=== PATIENT | female | born 1955 | race Caucasian/White ===

== ENCOUNTER → 2023-12-04 11:02 | Outpatient (REF) | payer MEDICARE, OTHER, SELFPAY | LOC: HWRAD 11:02 | PROVIDERS: ATTENDING PHYSICIAN Family Medicine | DX: M85.89 Other specified disorders of bone density and structure, multiple sites (principal); Z12.31 Encounter for screening mammogram for malignant neoplasm of breast | CPT/HCPCS: 77063; 77067; 77080 ==

== ENCOUNTER → 2023-12-05 11:24 | Outpatient (REF) | payer MEDICARE, OTHER, SELFPAY | LOC: RAD 11:24 | PROVIDERS: ATTENDING PHYSICIAN Family Medicine | DX: M79.89 Other specified soft tissue disorders (principal) | CPT/HCPCS: 76536 ==

== ENCOUNTER → 2024-03-11 06:19 | Day surgery (SDC) | payer MEDICARE, OTHER, SELFPAY | LOC: GI 06:19 | PROVIDERS: ATTENDING PHYSICIAN Internal Medicine | DX: Z12.11 Encounter for screening for malignant neoplasm of colon (principal); K22.89 Other specified disease of esophagus; K31.7 Polyp of stomach and duodenum; R12 Heartburn; K63.5 Polyp of colon; K29.70 Gastritis, unspecified, without bleeding | CPT/HCPCS: 45385; 45380; 43239; 88305; 88342 ==

== ENCOUNTER 2024-12-08 20:09 | Inpatient (IN) | payer MEDICARE, OTHER, SELFPAY ==
[2024-12-08] VITALS (9 sets, daily range): BP systolic 102–143; BP diastolic 42–105; BMI 38.6
[2024-12-08 16:57] LABS: Hematocrit 40.3 % (37.0-47.0); Hemoglobin 13.3 g/dL (12.0-16.0); Mean Corp Hgb Conc. 33.0 g/dL (33.0-37.0); Mean Corpuscular Volume 82.4 fL (81.0-99.0); Nucleated Red Blood Cells % 0 %; Platelet Count 269 10^3/uL (130-400); Red Cell Dist. Width 13.2 % (11.5-14.5)
--- NOTE | 2024-12-08 17:09 | ED.GENMED ---
History of Present Illness
<Endy Sebastian PA-C - Last Filed: 12/08/24 19:50>
General
Chief Complaint: Flank Pain
Time Seen by Provider: 12/08/24 16:44
History of Present Illness
History of Present Illness:
69-year-old female presents to the emergency department for evaluation of right flank pain occurring intermittently for the past week. Feels comparable to past kidney stone. States pain was severe 1 week ago, decreased to a dull ache throughout
the course of the week but over the past 2 days has worsened dramatically. Associated with nausea and vomiting. No fever, chills, sweats, lower urinary tract voiding symptoms, or diarrhea. Prior abdominal surgical history includes
cholecystectomy. Past kidney stone did not require surgical removal
Past History
<SERGE Owens Last Filed: 12/08/24 19:50>
Past History
ED Past Medical History: Hypercholesterolemia
ED Past Surgical History: Cholecystectomy
Social History
Tobacco: Non-smoker
Personal:
Living: with family
Review of Systems
<Endy Sebastian PA-C - Last Filed: 12/08/24 19:50>
Review of Systems
Allergies reviewed?: Yes
All Other Systems: ROS reviewed and negative except as documented in HPI and ROS
Phy Exam
<Endy Sebastian PA-C - Last Filed: 12/08/24 19:50>
Physical Exam
Physical Exam:
GEN: Well appearing, NAD, WDWN
HEENT: Oral mucosa moist, no scleral icterus
Cardiac: Regular rate
Lung: No respiratory distress, no tachypnea
MSK: No gross deformity or injuries
Skin: Good color, no pallor or jaundice, no rashes
Neuro: AO x3, moves all extremities freely
Psych: Calm, cooperative
Course
<Endy Sebastian PA-C - Last Filed: 12/08/24 19:50>
Orders/Labs/Results
Orders:
Orders
12/08/24 16:42
Basic Metabolic Panel Urgent
Complete Blood Count/With Diff Urgent
12/08/24 17:19
0.9% Sodium Chloride 1000 ml [Nss] 1,000 ml IV BOLUS
Ketorolac [Toradol] 15 mg IV NOW STA
Ondansetron Injectable [Zofran] 4 mg IV NOW STA
12/08/24 17:20
CT Abd/pel Without Iv Or Oral Urgent
Comment:
Reason For Exam: R flank pain
12/08/24 18:08
HYDROmorphone [Dilaudid] 0.5 mg IV NOW STA
12/08/24 18:27
Urinalysis Reflex To Culture Urgent
Date Specimen was Collected: 12/08/24
Time Specimen was Collected: 16:34
Urine Microscopic Reflex Cult Urgent
Urine Culture Urgent
ZAKIYA Source: U
Specimen Description:
Date Specimen was Collected: 12/08/24
Time Specimen was Collected: 16:34
12/08/24 19:34
CefTRIAXone [Rocephin] 1,000 mg IV NOW STA
12/08/24 19:40
Sterile Water [Sterile Water For Injection] 10 ml .ROUTE .[facility]-MED ONE
Abnormal Lab Results
12/08/24 12/08/24
16:42 18:27
WBC 14.4 H 10^3/uL
(4.8-10.8)
Abs Immat Gran (auto) 0.1 H 10^3/uL
(0-0.05)
Absolute Neuts (auto) 11.7 H 10^3/uL
(1.4-6.5)
Absolute Monos (auto) 1.0 H 10^3/uL
(0.1-0.6)
Neutrophils % 81.7 H %
(42.2-75.2)
Lymphocytes % 9.3 L %
(20.5-51.1)
BUN 26 H mg/dl
(7-17)
Glucose 128 H mg/dl
(70-99)
Leukocyte Esterase Rfl 1+ A
(Negative)
Urine WBC (Reflex) 21-25 A /HPF
(0-5)
Urine Bacteria (Reflex) Few A
(Negative)
12/08/24 16:42
12/08/24 16:42
Vital Signs
Initial and Last Documented VS:
Initial Vital Signs
Temp Pulse Resp BP Pulse Ox
98.3 F 115 18 143/105 97
12/08/24 16:30 12/08/24 16:30 12/08/24 16:30 12/08/24 16:30 12/08/24 16:30
Last Documented Vital Signs
Temp Pulse Resp BP Pulse Ox
99.6 F 96 18 118/88 97
12/08/24 19:29 12/08/24 19:29 12/08/24 19:29 12/08/24 19:29 12/08/24 19:29
<Morgan Balderrama MD - Last Filed: 12/08/24 19:53>
Orders/Labs/Results
Orders:
Orders
12/08/24 16:42
Basic Metabolic Panel Urgent
Complete Blood Count/With Diff Urgent
12/08/24 17:19
0.9% Sodium Chloride 1000 ml [Nss] 1,000 ml IV BOLUS
Ketorolac [Toradol] 15 mg IV NOW STA
Ondansetron Injectable [Zofran] 4 mg IV NOW STA
12/08/24 17:20
CT Abd/pel Without Iv Or Oral Urgent
Comment:
Reason For Exam: R flank pain
12/08/24 18:08
HYDROmorphone [Dilaudid] 0.5 mg IV NOW STA
12/08/24 18:27
Urinalysis Reflex To Culture Urgent
Date Specimen was Collected: 12/08/24
Time Specimen was Collected: 16:34
Urine Microscopic Reflex Cult Urgent
Urine Culture Urgent
ZAKIYA Source: U
Specimen Description:
Date Specimen was Collected: 12/08/24
Time Specimen was Collected: 16:34
12/08/24 19:34
CefTRIAXone [Rocephin] 1,000 mg IV NOW STA
12/08/24 19:40
Sterile Water [Sterile Water For Injection] 10 ml .ROUTE .[facility]-MED ONE
Abnormal Lab Results
12/08/24 12/08/24
16:42 18:27
WBC 14.4 H 10^3/uL
(4.8-10.8)
Abs Immat Gran (auto) 0.1 H 10^3/uL
(0-0.05)
Absolute Neuts (auto) 11.7 H 10^3/uL
(1.4-6.5)
Absolute Monos (auto) 1.0 H 10^3/uL
(0.1-0.6)
Neutrophils % 81.7 H %
(42.2-75.2)
Lymphocytes % 9.3 L %
(20.5-51.1)
BUN 26 H mg/dl
(7-17)
Glucose 128 H mg/dl
(70-99)
Leukocyte Esterase Rfl 1+ A
(Negative)
Urine WBC (Reflex) 21-25 A /HPF
(0-5)
Urine Bacteria (Reflex) Few A
(Negative)
12/08/24 16:42
12/08/24 16:42
Vital Signs
Initial and Last Documented VS:
Initial Vital Signs
Temp Pulse Resp BP Pulse Ox
98.3 F 115 18 143/105 97
12/08/24 16:30 12/08/24 16:30 12/08/24 16:30 12/08/24 16:30 12/08/24 16:30
Last Documented Vital Signs
Temp Pulse Resp BP Pulse Ox
99.6 F 96 18 118/88 97
12/08/24 19:29 12/08/24 19:29 12/08/24 19:29 12/08/24 19:29 12/08/24 19:29
<Endy Sebastian PA-C - Last Filed: 12/08/24 19:50>
MDM/Problems Addressed
MDM/Problems Addressed:
69-year-old female presents with flank pain found to have a large proximal right ureteral stone. Pain was controlled after 2 doses of IV medications however given the duration of her symptoms persistence coupled with elevated white blood cell count
and bacteria in the urine we will admit this patient for further pain control and monitoring with anticipation of urology intervention in the morning, urology was made aware of this admission
<Endy Sebastian PA-C - Last Filed: 12/08/24 19:50>
*Pulse Oximetry
SaO2: 97
Oxygen Mode of Delivery: Room air
Patient hypoxic: no
*Critical Care Note
Total Time (30-74mins, 75-104mins- exclusive of procedures): Not Applicable
ED Attending Note
<Endy Sebastian PA-C - Last Filed: 12/08/24 19:50>
-
Portions of this chart may have been created with voice recognition software.� Occasional wrong word or��sound alike� substitutions may have occurred due to the inherent limitations of voice recognition software.
<Morgan Balderrama MD - Last Filed: 12/08/24 19:53>
ED Attending Note
Patient seen and examined by attending physician: Yes
I performed the substantive portion of visit, reviewed & personally made and approve the management plan that is documented in note by myself or NANCY.: Yes
ED Attending Note:
1 week of right flank pain. No documented significant fever at home but some borderline temperature at home with some occasional slight chills mostly with nausea and vomiting. Pain is moderate in nature. Associated with nausea and vomiting.
On exam patient is nontoxic in no distress. Stable vital signs. Temperature 99.6. Lungs are clear and equal. Heart regular rate and rhythm no murmur. Abdomen is soft and benign. Elevated BMI. She does have right CVA tenderness. She is warm
and dry perfusing well. Grossly nonfocal.
Labs show a leukocytosis. Large stone proximal ureter with hydronephrosis. Urine with not a clear-cut UTI but minimally suspicious.
Plan leukocytosis, bacteria in the urine and pyuria, along with a very large stone patient will be admitted for further care antibiotics and referral to urology
Discharge Plan
Departure
Patient Disposition: Admit
Date of Disposition: 12/08/24
Time of Disposition: 19:35
Admit to: Med/Surg
Presentation/result/management discussed w/ accepting MD/DO: Hospitalist
Discharge Problem:
Ureterolithiasis
Prescriptions:
No Action
No Current Medications
0
Referrals:
Mary Lou Zamudio MD [Family Provider, Family Practice]
Interventions
Interventions:
*Risk Screen - Suicide Last Done: 12/08/24 16:30
*General Assessment Last Done: 12/08/24 16:30
*Neglect/Abuse Screening Last Done: 12/08/24 16:30
*ED- Fall Risk Assessment Last Done: 12/08/24 17:26
*ED COVID-19 Vaccine History Last Done: 12/08/24 17:26
DC-Ocxdxa-Hcumenwgyj Assessment Last Done: 12/08/24 17:30
ED-Female Genitourinary Assessment Last Done: 12/08/24 17:30
Discharge Date and Time
Print Language: BULGARIAN
[2024-12-08 17:19] LABS: Blood Urea Nitrogen 26 mg/dl (7-17); Calcium 9.5 mg/dl (8.4-10.2); Carbon Dioxide 24 mmol/L (22-30); Chloride 103 mmol/L (98-107); Glucose 128 mg/dl (70-99); Sodium 136 mmol/L (135-145); eGFR > 60.00
[2024-12-08] MEDS: NSS 1000 IV ×2 (17:35→23:21)
[2024-12-08] MEDS: TORADOL 15 MG IV (17:36)
[2024-12-08] MEDS: ZOFRAN 4 MG IV (17:39)
[2024-12-08] MEDS: DILAUDID 0.5 MG IV ×2 (18:14→20:58)
--- NOTE | 2024-12-08 18:14 | EDRN ---
per EMAR orders, this pt was given Dilaudid 0.5mg IVP at this time. this MANAGER RESOURCE double checked right patient, right drug, right route, right dose, and right time. after scanning the pts wrist band, the EMAR came up with an error message reading 'We
are sorry, but some of the information managed by this screen is currently being updated by: Rodri Marte. You can try contacting this user, or you can wait and try again later.' ER LUPILLO Masters and Er Dr Marte was notified of above. the
medication was administered as ordered. Dr Marte stated he will 'co-sign the med order soon.'
[2024-12-08 18:41] LABS: Urine Character Clear (Clear)
[2024-12-08 18:50] LABS: Urine Red Blood Cell 0-2 /HPF (0-2); Urine Squamous Cell 0-2 /LPF (Few); Urine White Cell 21-25 /HPF (0-5)
[2024-12-08] MEDS: ROCEPHIN 1000 MG IV (19:44)
--- NOTE | 2024-12-08 19:54 | HPS.HSE ---
Family Physician
-
Family Physician: Mary Lou Zamudio
Chief Complaint
-
Flank pain
History of Present Illness
This is a 69-year-old with past medical history significant for biliary colic status post cholecystectomy, hyperlipidemia coming to the emergency department with approximately 1 week history of right-sided flank pain.
Patient reports prior history of nephrolithiasis about 20 years ago with spontaneous passage of about a 6 mm stone. He states that when symptoms started to drain it reminds her of that episode. She reported right-sided flank pain that was
initially sharp but now a dull ache. It was associated with nonbilious and nonbloody emesis. She denies having any dysuria. She denies hematuria. She denies any groin discomfort. She does feel that the stone may have moved since the initial
onset. She has been straining her urine all week but has not passed the stone.
In the emergency department patient was afebrile, blood pressure was 118/88 with a pulse rate of 96 she was satting in the 99% on room air.
She does have a white count of 14.4 hemoglobin 10.3 and a blood count of 269. Electrolyte BUN/creatinine were normal. UA shows WBCs leukocyte esterase and a few bacteria.
The CT scan shows a 8 x 6 mm proximal ureteral stone.
Medical History
Past Medical History
Past Medical History: Reports Hypercholesterolemia
Past Surgical History: Reports Cholecystectomy
Social History
Tobacco: Non-smoker
Alcohol: None
Family History
Family History: Not pertinent
Allergies / Home Medications
Allergies reflects when Allergies were last updated in [employer].
Home Medications with original date entered in [employer]
Allergy/Medication List:
Allergies
Allergy/AdvReac Type Severity Reaction Status Date / Time
No Known Allergies Allergy Verified 12/08/24 17:25
Home Medications
No Meds [No Current Medications] 12/08/24
Review of Systems
-
Constitutional: Reports No Symptoms
EENT: Reports No Symptoms
Respiratory: Reports No Symptoms
Cardiac: Reports No Symptoms
Abdomen/GI: Reports Abdominal Pain and Nausea
: Reports Flank Pain
Musculoskeletal: Reports No Symptoms
Skin: Reports No Symptoms
Neurological: Reports No Symptoms
Endocrine: Reports No Symptoms
Hematologic/Lymphatic: Reports No Symptoms
Psych: Reports No Symptoms
Physical Exam
Vital Signs
Vital Signs
Temp Pulse Resp BP Pulse Ox
99.6 F 96 18 118/88 97
12/08/24 19:29 12/08/24 19:29 12/08/24 19:29 12/08/24 19:29 12/08/24 19:29
Physical Exam
General: Well Developed, Well Nourished and No Apparent Distress
HEENT: NormoCephalic, Moist mucous membranes and Atraumatic
Respiratory: Clear
Cardiac: S1/S2 and Regular Rhythm; No Murmur or Rub
GI: Soft, Non Tender, Non Distended and Normal Bowel Sounds; No Organomegaly
Rectal: Deferred by Provider
Musculoskeletal: No Clubbing, No Cyanosis and No Edema
Skin: No Rash
Neuro: AO x 3 and Nonfocal/grossly intact
Laboratory Results
-
12/08/24 16:42
12/08/24 16:42
Laboratory Results
Total Bilirubin Cancelled 12/08/24 16:42
AST Cancelled 12/08/24 16:42
ALT Cancelled 12/08/24 16:42
Alkaline Phosphatase Cancelled 12/08/24 16:42
Data Reviewed
-
CT Scan: Report Reviewed by me
Lab Data: Labs Reviewed by me
Old Records: Reviewed
Impression/Plan
-
IMPRESSION:
69-year-old with past medical history of hyperlipidemia presented emergency permit with 1 week history of right-sided flank pain without fevers or chills and found to have 8 x 6 mm proximal right ureteral stone. UA slightly positive with white
cells and 1+ leukocyte esterase with few bacteria. Patient has a peripheral leukocytosis to 14.4 but no systemic signs of infection. Renal function is stable. No hydro reported on the CT scan.
PLAN:
Symptomatic right nephrolithiasis - Spiked a fever after evaluation in ED.
- Admit to IMU post operatively
-N.p.o., going to OR tonight
- blood and urine cultures.
- IV ceftriaxone q 24 hours, one loading dose of gentamycin
-IV fluids
-Pain control antiemetics
-Tamsulosin
-Holding thinners for now, SCDs for DVT prophylaxis
-Urology aware and consulted, to or tonight
CODE STATUS�full code
[2024-12-08] MEDS: TYLENOL 650 MG PO (20:56)
--- NOTE | 2024-12-08 21:22 | CON.MD ---
Consultation - Medical
-
see dictated note
pt with remote hx of stones
now with right flank, + ua and elevated WBC
spiked temp of 101 in ER
reviewed options- risks, benefits, alternatives and disabilities with patient
to OR for stent- then IMU
Consultation
-
Date/Time Consultation Requested: 12/08/24 at 8pm
Date/Time Consultation Performed: 12/08/24 at 9:45 pm
Requesting Provider: ER
Performing Provider: Dr Sanders
Reason for Consultation: stone and fever
[2024-12-08] MEDS: GENTAMICIN 55 MG IV (21:26)
--- NOTE | 2024-12-08 22:23 | W.IMMPOSTOP ---
Surgical Immed Post Op Note
-
Primary Surgeon:
leonie
Assisting Surgeon:
none
Pre-op Diagnosis:
right ureteral stone and UTI
Post-op Diagnosis:
same
Procedure Performed:
cysto/right ureteral stent
Anesthesia Type:
gen
Specimen / Cultures:
none
Estimated Blood Loss:
1cc
Complications:
none
Operative Findings:
right ureteral stent and jones placed
to PACU- then IMU
--- NOTE | 2024-12-08 23:34 | PTCARENOTE ---
Rec'd from PACU at above time.
Handoff completed bedside, Hemodynamically stable, maintaining own airway, Normotensive, Normothermic, no pain per patient.
Plan of care explained, all questions answered.
[2024-12-09] VITALS (8 sets, daily range): BP systolic 119–143; BP diastolic 50–74; BMI 38.7
[2024-12-09] MEDS: NSS 1000 IV (05:28)
[2024-12-09 05:43] LABS: Hematocrit 36.8 % (37.0-47.0); Hemoglobin 12.3 g/dL (12.0-16.0); Mean Corp Hgb Conc. 33.4 g/dL (33.0-37.0); Mean Corpuscular Volume 82.0 fL (81.0-99.0); Platelet Count 240 10^3/uL (130-400); Red Cell Dist. Width 13.3 % (11.5-14.5)
[2024-12-09 06:08] LABS: Blood Urea Nitrogen 19 mg/dl (7-17); Calcium 8.6 mg/dl (8.4-10.2); Carbon Dioxide 23 mmol/L (22-30); Chloride 108 mmol/L (98-107); Estimated Creatinine Clearance 89 ml/min; Glucose 176 mg/dl (70-99); Potassium 4.8 mmol/L (3.5-5.1); Sodium 138 mmol/L (135-145); eGFR > 60.00
--- NOTE | 2024-12-09 07:17 | W.PN.URO.CBU ---
Today's Communication / Plan
-
remove jones and continue medical support
Assessment / Plan
-
stone and UTI
s/p stent
pt stable
d/c jones
UOOB/regular diet
continue antibx and await cx's
Diagnosis
-
Date of Service: December 09, 2024
-
Patient Diagnosis:
right ureteral stone
fever/UTI
Post Op Day:
right ureteral stent 12/08
Subjective
-
pt feels much better
afebrile
HD stable
urine clear
Objective
-
Vital Signs
Temp Pulse Resp BP Pulse Ox
98.6 F 80 12 119/62 97
12/09/24 01:00 12/09/24 06:00 12/09/24 06:00 12/09/24 06:00 12/09/24 06:00
Intake and Output
12/08/24 12/09/24 12/10/24
06:59 06:59 06:59
Intake Total 1025 / 1025
Output Total 2174 / 2175
Balance -1150 / -1150
Intake:
Oral fluids 0 / 0
IV fluids (Total) 1025 / 1025
Normosol 150 / 150
Nss 1,000 ml @ 125 mls/hr IV . 875 / 875
Q8H PAMELA Rx#:[id number]
Output:
Urine, Jones 2174 / 2174
Laboratory Results
12/09/24 05:29
12/09/24 05:29
Review of Systems
-
Constitutional: Fatigue
Respiratory: No Symptoms
Cardiac: No Symptoms
Abdomen/GI: No Symptoms
Physical Exam
-
General - no acute distress
Abdomen - soft, non-tender
--- NOTE | 2024-12-09 11:49 | W.PN.HOSP.TC ---
Today's Communication/Plan
-
Transfer to [facility]
Follow-up urine/blood culture report
Continue antibiotic
Assessment / Plan
Assessment / Plan
1. Right-sided obstructive uropathy
- CT a/p at admit : 7 mm obstructing stone within the proximal right ureter with associated mild right-sided hydronephrosis.
- Status post ureteral stent placement on 12/08
- Mcallister catheter has been removed and patient getting voiding trial
- Urology help appreciated
- Denies any flank pain. No nausea or vomiting.
2. Sepsis -POA
Urinary tract infection
- Urinalysis showing some pyuria and bacteriuria
- At admission patient had leukocytosis with fever
- Urine culture and blood culture pending
- Maintain on empiric Rocephin for now
3. GERD
- Resume back Pepcid
DVT PPX - scd
Full code
Total time spent : 52 mins
Downgrade to [facility] floor
Anticipated Discharge: 24 - 48 hours
Subjective/Interval History
-
Date of Service: December 09, 2024
Sitting comfortably in chair
Afebrile in the night
Denies having any right flank pain
No hematuria/dysuria
Objective Data
-
Labs:
Laboratory Results
12/09/24
05:29
WBC 15.7 H
Hgb 12.3
Hct 36.8 L
Plt Count 240
Sodium 138
Potassium 4.8
Chloride 108 H
Carbon Dioxide 23
BUN 19 H
Creatinine 0.7
Glucose 176 H
Calcium 8.6
Vital Signs:
Vital Signs
Temp Pulse Resp BP Pulse Ox
98.2 F 80 15 133/74 98
12/09/24 07:15 12/09/24 07:46 12/09/24 07:46 12/09/24 07:46 12/09/24 10:10
I&O
12/08/24 12/09/24 12/10/24
06:59 06:59 06:59
Intake Total 1025 / 1025 775 / 775
Output Total 2175 / 2175 350 / 350
Balance -1150 / -1150 425 / 425
Review of Systems
-
Respiratory: Reports No Symptoms
Cardiac: Reports No Symptoms
Abdomen/GI: Reports No Symptoms
Physical Exam
-
General: No Apparent Distress and Comfortable
HEENT: Negative Oxygen
Musculoskeletal: No Edema
Neuro: Awake, Alert, Oriented, No Motor Deficits and Nonfocal/Grossly Intact
Psych: Calm
--- NOTE | 2024-12-09 12:37 | CM ---
Initial assessment completed with patient who lives with her in a 1 story plus basement home with 2 steps to enter. LAST DIPPER patient was independent in ADL's and ambulation, drives. No DME. No in-home services. Does have HC-POA. No VA benefits.
No psychiatric hospitalizations. PCP is Dr. Mary Lou Zamudio. Pharmacy is [facility] [address] in [place]. Discharge POC: Anticipate home with no needs.
--- NOTE | 2024-12-09 12:42 | PTCARENOTE ---
Pt transferred to floor bed. Report called prior to transfer. at bedside and brought belongings with transport escort.
[2024-12-09] MEDS: PEPCID 20 MG PO ×2 (13:21→20:11)
[2024-12-09] MEDS: TYLENOL 650 MG PO (18:22)
[2024-12-09] MEDS: STERILE WATER FOR INJECTION 10 ML IV (20:11)
[2024-12-09] MEDS: ROCEPHIN 1000 MG IV (20:11)
[2024-12-09] MEDS: ULTRAM 50 MG PO (23:07)
[2024-12-10 07:00] VITALS: BP 127/72
--- NOTE | 2024-12-10 07:26 | W.PN.URO.CBU ---
Today's Communication / Plan
-
await ucx result
Assessment / Plan
-
stone and UTI
s/p stent
pt stable
await labs and cx
when medically stable- ok to discharge with antibx/pyridium and tramadol for pain
outpt f/u with dr hadley to discuss definitive stone treatment
Diagnosis
-
Date of Service: December 10, 2024
-
Patient Diagnosis:
right ureteral stone
fever/UTI
Post Op Day:
right ureteral stent 12/08
Subjective
-
pt stable- felt better yesterday- some mild pain and nausea today
no fevers
blood cx's negative- ucx pending
Objective
-
Vital Signs
Temp Pulse Resp BP Pulse Ox
98.6 F 84 18 140/70 97
12/09/24 23:31 12/09/24 23:31 12/09/24 23:31 12/09/24 23:31 12/09/24 23:31
Intake and Output
12/09/24 12/10/24 12/11/24
06:59 06:59 06:59
Intake Total 1025 / 1025 1255 / 1255
Output Total 2174 / 2174 550 / 550
Balance -1150 / -1150 705 / 705
Intake:
Oral fluids 0 / 0 880 / 880
IV fluids (Total) 1025 / 1025 375 / 375
Normosol 150 / 150
Nss 1,000 ml @ 125 mls/hr IV . 875 / 875 375 / 375
Q8H PAMELA Rx#:[id number]
Output:
Urine, Mcallister 5 / 5 350 / 350
Urine, Voided 200 / 200
Other:
Number of approximated MODERATE 1
amounts of urine
Number of approximated LARGE 1
amounts of urine
Review of Systems
-
Constitutional: Fatigue
Respiratory: No Symptoms
Cardiac: No Symptoms
Abdomen/GI: No Symptoms
: Frequency and Flank Pain
Physical Exam
-
General - no acute distress
[2024-12-10] MEDS: PEPCID 20 MG PO (08:23)
[2024-12-10 08:24] LABS: Hematocrit 36.8 % (37.0-47.0); Hemoglobin 12.7 g/dL (12.0-16.0); Mean Corp Hgb Conc. 34.5 g/dL (33.0-37.0); Mean Corpuscular Volume 82.0 fL (81.0-99.0); Platelet Count 292 10^3/uL (130-400); Red Cell Dist. Width 13.4 % (11.5-14.5)
[2024-12-10] MEDS: TYLENOL 650 MG PO (08:26)
--- NOTE | 2024-12-10 10:33 | CM ---
Patient seen at bedside on . Patient states that she has no needs for discharge. Patient reviewed IMM and signed form placed on chart. Patient plan for discharge home today. CM will continue to follow for discharge planning needs.
Plan; home with no needs.
[2024-12-10 10:54] LABS: Blood Urea Nitrogen 24 mg/dl (7-17); Calcium 8.9 mg/dl (8.4-10.2); Carbon Dioxide 23 mmol/L (22-30); Chloride 103 mmol/L (98-107); Estimated Creatinine Clearance 89 ml/min; Glucose 156 mg/dl (70-99); Potassium 3.9 mmol/L (3.5-5.1); Sodium 135 mmol/L (135-145); eGFR > 60.00
--- NOTE | 2024-12-10 14:01 | W.DCSUMMARY ---
Discharge Summary
Discharge Data
Date of Admission: 12/08/24
Date of Discharge: 12/10/24
-
Pending Results: No
Hospital Course
Discharging Physician : Dr Morales Valdez
Disposition : To home
Primary care physician : Dr Mary Lou Zamudio
Principal Discharge diagnosis :
Right obstructive ureteral stone
Obstructive uropathy
Urinary tract infection and sepsis
Chronic Discharge diagnosis :
History of nephrolithiasis
Gastroesophageal reflux disease
Physical examination:
HEENT: No pallor, cyanosis, or jaundice. Throat clear.
NECK: Supple. No JVD.
RESPIRATORY: Lungs clear to auscultation.
CVS: S1, S2 normal. RRR. No murmur, rub or gallop.
ABDOMEN: Soft, non-tender. No distension. BS+/normal.
EXTREMITIES: No peripheral cyanosis or edema.
ENGINEERING SECRETARY: AOx3. No focal deficits.
Hospital Course :
Patient is 69-year-old female with above-mentioned past medical history came to ER with new onset of right-sided flank pain. Patient has a history of remote nephrolithiasis and symptoms where similar in nature. CT abdomen pelvis done in ER showed
an 8 x 6 mm right proximal ureteral stone with associated hydronephrosis. Patient was noted to be septic as well with UA showing pyuria and bacteria suggestive of ongoing urinary tract infection. patient started on broad-spectrum antibiotic and
urology was involved in care. Urine culture and blood cultures were collected. Patient was taken to the OR with right ureteral stent placement. Postprocedure patient course remained uneventful. Blood cultures were negative and urine culture was
growing mixed christine. Patient was discharged on empiric course of levofloxacin with plan for patient to follow-up with urology in office.
Important imaging findings :
None
Procedure findings :
None
Discharge Plan
-
Patient Disposition: Home (Routine Discharge)
Discharge Diagnosis/Procedures: Right obstructive uropathy, stone
Condition: Fair
Diet: Regular
Activity: As tolerated
Driving Restrictions: As prior to admission
Bathing Restrictions: OK to Shower
Referrals:
Mihai Sanders Jr., MD [Active, Urology] - in two to three days
Mary Lou Zamudio MD [Family Provider, [facility]] - in one week
Prescriptions:
New
phenazopyridine 100 mg Tablet
100 mg PO Q8 Qty: 15 0RF
tramadol 50 mg Tablet
25 mg PO Q6HPRN PRN (Reason: mod sev pain) Qty: 10 0RF
levofloxacin 750 mg tablet
750 mg PO DAILY 7 Days Qty: 7 0RF
Continued
famotidine [Pepcid] 20 mg Tablet
20 mg PO BID
Patient Comments:
pt unsure of dose
Discharge Orders:
Discharge Patient (As Directed); Ordered 12/10/24
Ordered By: Morales Valdez
Discharge Date and Time
Print Language: COOK ISLANDER
== END 2024-12-10 15:33 | disposition home or self-care (01) | DRG 659 ==
LOC: 4 EAST ACU 20:09
PROVIDERS: Emergency Medicine; Nurse Practitioner Family; ADMITTING PHYSICIAN Internal Medicine; ATTENDING PHYSICIAN Hospitalist; CONSULT PHYSICIAN Specialist; EMERGENCY PHYSICIAN Emergency Medicine; FAMILY PHYSICIAN Family Medicine
PROC: 0T768DZ Dilation of Right Ureter with Intraluminal Device, Via Natural or Artificial Opening Endoscopic (ICD-10-PCS; 2024-12-09)
DX: N13.6 Pyonephrosis (principal); A41.9 Sepsis, unspecified organism; K21.9 Gastro-esophageal reflux disease without esophagitis; Z90.49 Acquired absence of other specified parts of digestive tract; Z87.442 Personal history of urinary calculi; E78.00 Pure hypercholesterolemia, unspecified; E66.9 Obesity, unspecified; Z68.38 Body mass index [BMI] 38.0-38.9, adult
CPT/HCPCS: 74018; 74176; 76000; 80048; 81003; 81015; 85025; 85027; 87040; 87086; 96361; 96374; 96375; 99285; C2617

== ENCOUNTER 2024-12-20 05:43 | Day surgery (SDC) | payer MEDICARE, OTHER, SELFPAY ==
--- NOTE | 2024-12-18 12:31 | PTCARENOTE ---
Abn Labs/urineErin at Dr. Sanders's office made aware.
[2024-12-20] VITALS (7 sets, daily range): BP systolic 122–157; BP diastolic 53–76; BMI 38.0
[2024-12-20] MEDS: NORMOSOL-R/PLASMALYTE-A 1000 IV (06:48)
[2024-12-20 07:01] LABS: Urine Character Clear (Clear)
[2024-12-20 07:08] LABS: Urine Red Blood Cell 0-2 /HPF (0-2); Urine Squamous Cell 0-2 /LPF (Few); Urine White Cell 16-20 /HPF (0-5)
[2024-12-20] MEDS: DETROL LA 4 MG PO (08:31)
== END 2024-12-20 09:15 | disposition home or self-care (01) ==
LOC: SDS 05:43
PROVIDERS: ATTENDING PHYSICIAN Specialist
DX: N20.2 Calculus of kidney with calculus of ureter (principal)
CPT/HCPCS: 52356; 74018; 76000; 81003; 81015; 82365; 87086; 93005; C1894; C2617; J1580

== ENCOUNTER → 2025-02-26 08:45 | Outpatient (REF) | payer MEDICARE, OTHER, SELFPAY | LOC: RAD 08:45 | PROVIDERS: ATTENDING PHYSICIAN Specialist; FAMILY PHYSICIAN Family Medicine | DX: N20.0 Calculus of kidney (principal) | CPT/HCPCS: 74018 ==

== ENCOUNTER → 2025-03-25 08:19 | Outpatient (REF) | payer MEDICARE, OTHER, SELFPAY | LOC: HWRAD 08:19 | PROVIDERS: ATTENDING PHYSICIAN Obstetrics & Gynecology; FAMILY PHYSICIAN Family Medicine | DX: N95.0 Postmenopausal bleeding (principal) | CPT/HCPCS: 76830; 76856 ==